=== PATIENT | male | born 1970 | race Caucasian/White ===

== ENCOUNTER 2024-02-29 13:01 | Observation (INO) | payer BC ==
[2024-02-29 13:49] LABS: BASOPHILS PERCENT AUTO 0.4 % (0.0-1.0); EOSINOPHILS ABSOLUTE AUTO 0.2 K/mm3 (0.0-0.4); EOSINOPHILS PERCENT AUTO 1.8 % (0.0-6.0); HEMATOCRIT 41.2 % (42.0-52.0); HEMOGLOBIN 14.3 gm/dl (14.0-18.0); IMMATURE GRAN ABSOLUTE AUTO 0.02 K/mm3 (0.00-0.05); IMMATURE GRAN PERCENT AUTO 0.2 % (0.0-0.4); LYMPHOCYTES ABSOLUTE AUTO 0.8 K/mm3 (1.0-4.8); MEAN CORPUSCULAR HEMOGLOBIN 28.8 pg (28.0-32.0); MEAN CORPUSCULAR HGB CONC 34.7 g/dl (32.0-36.0); MEAN CORPUSCULAR VOLUME 83.1 fl (83.0-99.0); MEAN PLATELET VOLUME 10.1 fl (9.4-12.4); MONOCYTES ABSOLUTE AUTO 0.6 K/mm3 (0.0-0.8); MONOCYTES PERCENT AUTO 6.7 % (0.0-8.0); NEUTROPHILS ABSOLUTE AUTO 7.3 K/mm3 (1.8-7.7); NEUTROPHILS PERCENT AUTO 81.9 % (41.0-71.0); PLATELET COUNT,PLT 190 K/mm3 (150-400); RED BLOOD CELL COUNT 4.96 M/mm3 (4.52-5.90)
[2024-02-29] MEDS: Sodium Chloride 0.9% 10 ML Syringe FLUSH PRN (13:57)
[2024-02-29] MEDS: Iopamidol 612 MG/ML 100 ML Bottle IVPUSH ONE (13:57)
[2024-02-29 14:16] LABS: A/G RATIO 1.5 (1-2); ALBUMIN 3.8 g/dl (3.4-5.0); ANION GAP 13.9 (5-15); BILIRUBIN TOTAL 2.3 mg/dL (0.2-1.0); BUN/CREATININE RATIO 13.8 (14-18); C-REACTIVE PROTEIN 2.1 mg/dL (<0.30); CALCIUM 8.9 mg/dL (8.5-10.1); CREATININE 1.3 mg/dL (0.7-1.3); EST CRCL DRUG DOSING (CG) 66.29 mL/min; POTASSIUM,K 3.9 mEq/L (3.5-5.1); PROTEIN TOTAL,TP 6.3 g/dl (6.4-8.2)
[2024-02-29] MEDS: Piperacillin/Tazobactam 4.5 GM in Sodium Chloride 0.9% 100 ML IV ONE (15:32)
[2024-02-29] MEDS ORDERED: oxyCODONE 5 MG Tab PO PRN (18:35)
[2024-02-29] MEDS ORDERED: Acetaminophen 325 MG Tab PO PRN (18:35)
[2024-02-29] MEDS ORDERED: Polyethylene Glycol 3350 Powder 17 GM Packet PO PRN (18:35)
[2024-02-29] MEDS ORDERED: Ondansetron 4 MG Tab.DIS PO PRN (18:35)
[2024-02-29] MEDS ORDERED: Morphine 2 MG/ML SYRINGE IVPUSH PRN (18:35)
[2024-02-29] MEDS: Enoxaparin 100 MG/1 ML Syringe SUBCUT ONE (20:54)
[2024-02-29] MEDS: Sodium Chloride 0.9% 1,000 ML IV SCH (20:54)
[2024-02-29] MEDS: Piperacillin/Tazobactam 4.5 GM in Sodium Chloride 0.9% 100 ML IV SCH (20:54)
[2024-03-01 05:48] LABS: BASOPHILS PERCENT AUTO 0.4 % (0.0-1.0); EOSINOPHILS ABSOLUTE AUTO 0.1 K/mm3 (0.0-0.4); EOSINOPHILS PERCENT AUTO 1.3 % (0.0-6.0); HEMATOCRIT 41.2 % (42.0-52.0); HEMOGLOBIN 14.1 gm/dl (14.0-18.0); IMMATURE GRAN ABSOLUTE AUTO 0.05 K/mm3 (0.00-0.05); IMMATURE GRAN PERCENT AUTO 0.6 % (0.0-0.4); LYMPHOCYTES ABSOLUTE AUTO 0.8 K/mm3 (1.0-4.8); LYMPHOCYTES PERCENT AUTO 8.6 % (24.0-44.0); MEAN CORPUSCULAR HEMOGLOBIN 28.7 pg (28.0-32.0); MEAN CORPUSCULAR HGB CONC 34.2 g/dl (32.0-36.0); MEAN CORPUSCULAR VOLUME 83.9 fl (83.0-99.0); MEAN PLATELET VOLUME 9.8 fl (9.4-12.4); MONOCYTES ABSOLUTE AUTO 0.7 K/mm3 (0.0-0.8); MONOCYTES PERCENT AUTO 7.9 % (0.0-8.0); NEUTROPHILS ABSOLUTE AUTO 7.4 K/mm3 (1.8-7.7); NEUTROPHILS PERCENT AUTO 81.2 % (41.0-71.0); PLATELET COUNT,PLT 169 K/mm3 (150-400); RED BLOOD CELL COUNT 4.91 M/mm3 (4.52-5.90); WHITE BLOOD CELL COUNT,WBC 9.09 K/mm3 (3.9-11.3)
[2024-03-01 06:45] LABS: A/G RATIO 1.4 (1-2); ALBUMIN 3.5 g/dl (3.4-5.0); BILIRUBIN TOTAL 3.2 mg/dL (0.2-1.0); BUN/CREATININE RATIO 11.7 (14-18); C-REACTIVE PROTEIN 3.12 mg/dL (<0.30); CALCIUM 9.1 mg/dL (8.5-10.1); CREATININE 1.2 mg/dL (0.7-1.3); EST CRCL DRUG DOSING (CG) 71.82 mL/min; PROTEIN TOTAL,TP 6.1 g/dl (6.4-8.2)
[2024-03-01] MEDS ORDERED: Potassium Citrate [Potassium] 99 MG Capsule PO SCH (09:00)
[2024-03-01] MEDS ORDERED: LYSINE HCL 500 MG PO SCH (09:00)
[2024-03-01] MEDS: Aspirin 81 MG Tab.Chew PO SCH (09:35)
[2024-03-01] MEDS: Magnesium Oxide 400 MG Tab PO SCH (09:35)
[2024-03-01] MEDS: Apixaban 5 MG Tab PO SCH (09:35)
== END 2024-03-01 17:28 | disposition home or self-care (01) ==
LOC: JD.ED 13:01 → JD.MS 15:11
PROVIDERS: ADMIT Family Medicine; ATTEND Family Medicine
DX: K57.32 Diverticulitis of large intestine without perforation or abscess without bleeding (principal); L02.91 Cutaneous abscess, unspecified; I42.2 Other hypertrophic cardiomyopathy; I48.91 Unspecified atrial fibrillation; K21.9 Gastro-esophageal reflux disease without esophagitis; Z79.82 Long term (current) use of aspirin; Z79.01 Long term (current) use of anticoagulants; Z79.899 Other long term (current) drug therapy; Z91.018 Allergy to other foods
CPT/HCPCS: 36415; 74177; 80053; 85025; 86140; 96365; 99285; A9270; J1650; J2543; J3490; J7030; Q9967; 96366; 96372; 96376; G0378